=== PATIENT | female | born 1990 | race Caucasian/White ===

== ENCOUNTER 2023-05-07 08:13 | Emergency (ER) | payer OTHER ==
[~2023-05-07] VITALS: Ht 162.6 cm; Wt 61.7 kg
[2023-05-07 08:18] VITALS: BP 123/83; PULSE 86; RESP 18; TEMP 98.3; O2SAT 100
[2023-05-07] MEDS: ONDANSETRON 4 MG ODT PO ONE (09:09)
[2023-05-07] MEDS: FAMOTIDINE 20 MG TAB PO ONE (09:16)
[2023-05-07] MEDS: ALUMINUM HYD/MAG/SIMETHICONE 30 ML UDC PO ONE (09:16)
[2023-05-07] MEDS ORDERED: OMEP20EC11 PO (10:29)
[2023-05-07] MEDS ORDERED: ONDA-188 PO (10:29)
== END 2023-05-07 10:35 | disposition home or self-care (01) ==
LOC: MED 08:13
DX: K21.9 Gastro-esophageal reflux disease without esophagitis (principal); Z79.899 Other long term (current) drug therapy
CPT/HCPCS: 81002; 81025; 99284; Q0162